=== PATIENT | male | born 1970 | race Caucasian/White ===

== ENCOUNTER 2018-05-15 23:21 | Emergency (ER) | payer SELFPAY ==
[~2018-05-15] VITALS: Ht 167.6 cm; Wt 69.4 kg
[2018-05-15 23:28] VITALS: Ht 167.6 cm; Wt 69.4 kg
[2018-05-16 02:04] VITALS: BP 159/89
== END 2018-05-16 02:04 | disposition home or self-care (01) ==
LOC: ED 23:21
DX: S16.1XXA Strain of muscle, fascia and tendon at neck level, initial encounter (principal); V43.52XA Car driver injured in collision with other type car in traffic accident, initial encounter; Y93.I9 Activity, other involving external motion; Y92.488 Other paved roadways as the place of occurrence of the external cause; Y99.8 Other external cause status